=== PATIENT | female | born 1955 | race Asian ===

== ENCOUNTER 2018-11-02 14:19 | Day surgery (SDC) | payer OTHER ==
[~2018-11-02] VITALS: Ht 172.7 cm; Wt 69.8 kg
[~2018-11-02 14:19] MED LIST: ALBUTEROL/IPRATROPIUM 2.5MG/0.5MG, 3 ML NPPB PRN; DEXAMETHASONE 4 MG/ML, 1ML IV PRN; EPHEDRINE 50 MG/ML, 1ML IVPush PRN; HYDROcodone/APAP 7.5-325MG/15ML UDC PO PRN; HYDROmorphone 2 MG/ML, 1ML IVPush PRN; LABETALOL 5MG/ML, 20ML IV PRN; MEPERIDINE/PF 25MG/0.5ML IVPush PRN; MIDAZOLAM 1 MG/ML, 2ML IV PRN; MORPHINE SULFATE 4 MG/ML, 1ML IVPush PRN; ONDANSETRON ODT 8 MG PO PRN; OXYcodone 5 MG/5 ML ORAL.SOL UDC PO PRN; PLEASE ENTER HEIGHT AND WEIGHT MC SCH; hydrALAzine 20 MG/ML, 1ML IV PRN
[2018-11-02] MEDS ORDERED: EPINEPHRINE 1 MG/ML, 1ML ONE (14:27)
[2018-11-02] MEDS ORDERED: LIDOCAINE 1%, 20ML ONE (14:28)
[2018-11-02] MEDS ORDERED: BACITRACIN 50,000 UNIT ONE (14:28)
[2018-11-02 14:51] VITALS: BP 182/98
[2018-11-02] MEDS ORDERED: FAMOTIDINE 20 MG TABLET PO ONE (15:00)
[2018-11-02] MEDS ORDERED: SCOPOLAMINE PATCH, 1.5MG PATCH.TD72 TD ONE (15:00)
[2018-11-02] MEDS ORDERED: GABAPENTIN 300 MG CAPSULE PO ONE (15:00)
[2018-11-02] MEDS ORDERED: LACTATED RINGERS 1,000 ML IV SCH ×2 (15:00→20:01)
[2018-11-02] MEDS ORDERED: ACETAMINOPHEN 500 MG TABLET PO ONE (15:00)
[2018-11-02] MEDS ORDERED: MIDAZOLAM 1 MG/ML, 2ML ONE (15:17)
[2018-11-02] MEDS ORDERED: GLYCOPYRROLATE 0.2MG/1ML, 5ML ONE (15:17)
[2018-11-02] MEDS ORDERED: FENTANYL PF 250 MCG/5ML ONE (15:17)
[2018-11-02] MEDS ORDERED: ROCURONIUM 10MG/ML,5ML ONE (15:17)
[2018-11-02] MEDS ORDERED: PROPOFOL 10 MG/ML, 20ML ONE (15:17)
[2018-11-02] MEDS ORDERED: DEXAMETHASONE 4 MG/ML, 1ML ONE (15:17)
[2018-11-02] MEDS ORDERED: LIDOCAINE-MPF 2% ,5ML ONE (15:17)
[2018-11-02] MEDS ORDERED: BENAZEPRIL (15:21)
[2018-11-02] MEDS ORDERED: ATORVASTATIN (15:21)
[2018-11-02] MEDS ORDERED: METF500T17 PO (15:21)
[2018-11-02 15:46] LABS: BASOPHILS # (AUTO) 0.03 x10^3/uL (0-0.1); BASOPHILS % (AUTO) 0 % (0-1); EOSINOPHILS % (AUTO) 2 % (1-7); LYMPHOCYTES # (AUTO) 1.46 x10^3/uL (1-3.4); LYMPHOCYTES % (AUTO) 23 % (22-44); MD NO; MEAN CORPUSCULAR HEMOGLOBIN 25.7 pg (27.0-34.8); MEAN CORPUSCULAR HGB CONC 31.7 g/dL (32.4-35.8); MEAN CORPUSCULAR VOLUME 81.2 fL (80-100); MEAN PLATELET VOLUME 7.3 fL (7.4-10.4); MONOCYTES # (AUTO) 0.29 x10^3/uL (0.2-0.8); MONOCYTES % (AUTO) 5 % (2-9); NEUTROPHILS # (AUTO) 4.49 x10^3/uL (1.8-6.8); NEUTROPHILS % (AUTO) 71 % (42-75); PLATELET COUNT 177 x10^3/uL (130-400); RED BLOOD COUNT 4.74 x10^6/uL (3.82-5.3); RED CELL DISTRIBUTION WIDTH 15.8 % (9.6-15.2)
[2018-11-02 15:57] LABS: ALBUMIN 4.1 g/dL (3.4-5.0); ANION GAP 8 mmol/L (5-15); CALCIUM 9.2 mg/dL (8.5-10.1); CHLORIDE 108 mmol/L (98-107)
[2018-11-02 15:59] LABS: MICROSCOPIC AUTO
[2018-11-02 16:01] LABS: ALANINE AMINOTRANSFERASE 12 U/L (12-78); ALKALINE PHOSPHATASE 117 U/L (45-117); BILIRUBIN,TOTAL 0.7 mg/dL (0.2-1.0); CREATININE 0.87 mg/dL (0.55-1.02); TOTAL PROTEIN 8.1 g/dL (6.4-8.2)
[2018-11-02 16:03] LABS: CULTURE INDICATED? YES
[2018-11-02] MEDS ORDERED: MICROFIBRILLAR COLLAGEN 1 GM TP ONE (17:31)
[2018-11-02] MEDS ORDERED: MICROFIBRILLAR COLLAGEN 70X35X1 DRESSING ONE (17:31)
[2018-11-02] MEDS ORDERED: OXYcodone 5 MG/5 ML ORAL.SOL UDC ONE (18:12)
[2018-11-02] MEDS ORDERED: FENTANYL PF 100 MCG/2ML ONE (18:12)
[2018-11-02] MEDS: FENTANYL PF 100 MCG/2ML IV PRN ×2 (18:33→18:40)
[2018-11-02] MEDS ORDERED: hydrALAzine 20 MG/ML, 1ML ONE (18:57)
[2018-11-02 19:50] VITALS: BP 165/91
[2018-11-02] MEDS ORDERED: ONDANSETRON 2MG/ML, 2ML ONE (19:50)
[2018-11-02] MEDS ORDERED: HYDROmorphone 2 MG/ML, 1ML IV PRN (20:00)
[2018-11-02] MEDS ORDERED: OXYcodone/APAP 5/325MG TABLET PO PRN (20:00)
[2018-11-02] MEDS ORDERED: ONDANSETRON 2MG/ML, 2ML IVPush PRN ×2 (20:00)
[2018-11-02] MEDS ORDERED: OXYcodone 5 MG/5 ML ORAL.SOL UDC PO PRN (20:00)
[2018-11-02 23:53] VITALS: BP 125/78
[2018-11-03 04:17] VITALS: BP 115/70
[2018-11-03 06:22] VITALS: BP 134/80
[2018-11-03 09:35] VITALS: BP 126/74
== END 2018-11-03 10:23 | disposition home or self-care (01) ==
LOC: OR 14:19 → 4NOR 19:30 → OR 11-03 10:23
PROVIDERS: ATTEND Specialist
DX: T85.848A Pain due to other internal prosthetic devices, implants and grafts, initial encounter (principal); E11.9 Type 2 diabetes mellitus without complications; I10 Essential (primary) hypertension; Z79.84 Long term (current) use of oral hypoglycemic drugs; Z85.3 Personal history of malignant neoplasm of breast; Z90.12 Acquired absence of left breast and nipple; Z79.899 Other long term (current) drug therapy; Y83.8 Other surgical procedures as the cause of abnormal reaction of the patient, or of later complication, without mention of misadventure at the time of the procedure; Y92.89 Other specified places as the place of occurrence of the external cause
CPT/HCPCS: 19328; 19371; 19380; 80053; 81001; 82962; 85025; 87077; 87086; 88112; 88305; 93005; C1762; C1789; J0171; J0360; J1100; J2250; J2405; J2704; J3010; G0378